=== PATIENT | female | born 1950 | race Caucasian/White ===

== ENCOUNTER 2019-12-07 08:00 | Inpatient (IN) | payer OTHER ==
[2019-12-07 15:18] VITALS: BMI 26.9
--- OUTSIDE RECORDS SUMMARY | 2019-12-11 06:07 | XMS ---
:1950 Author Organization [facility] Care Team Providers Name Role Phone CARMEL GATICA Unavailable Unavailable SANDIE RODRIGUEZ MD Unavailable Unavailable SANDIE RODRIGUEZ MD Unavailable Unavailable JENNIFERSANDIE PANCHAL MD Unavailable Unavailable JENNIFERSANDIE PANCHAL MD Unavailable Unavailable JENNIFERSANDIE PANCHAL MD Unavailable Unavailable JENNIFERSANDIE PANCHAL MD Unavailable Unavailable JENNIFERSANDIE PANCHAL MD Unavailable Unavailable SANDIE RODRIGUEZ MD Unavailable Unavailable SANDIE RODRIGUEZ MD Unavailable Unavailable JENNIFERSANDIE MD Unavailable Unavailable JENNIFERSANDIE MD Unavailable Unavailable JENNIFERSANDIE MD Unavailable Unavailable JENNIFERSANDIE MD Unavailable Unavailable JENNIFERSANDIE PANCHAL MD Unavailable Unavailable Carmel Valles Unavailable Unavailable Jayson Valles Unavailable Unavailable Re-disclosure Warning The records that you are about to access may contain information from federally- assisted alcohol or drug abuse programs. If such information is present, then the following federally mandated warning applies: This information has been disclosed to you from records protected by federal confidentiality rules (42 CFR part 2). The federal rules prohibit you from making any further disclosure of this information unless further disclosure is expressly permitted by the written consent of the person to whom it pertains or as otherwise permitted by 42 CFR part 2. A general authorization for the release of medical or other information is NOT sufficient for this purpose. The Federal rules restrict any use of the information to criminally investigate or prosecute any alcohol or drug abuse patient.The records that you are about to access may contain highly sensitive health information, the redisclosure of which is protected by Article 27-F of the [place] State Public Health law. If you continue you may haveaccess to information: Regarding HIV / AIDS; Provided by facilities licensed or operated by the [facility] Office of Mental Health; or Provided by the [facility] Office for People With Developmental Disabilities. If such information is present, then the following [facility] mandated warning applies: This information has been disclosed to you from confidential records which are protected by state law. State law prohibits you from making any further disclosure of this information without the specific written consent of the person to whom it pertains, or as otherwise permitted by law. Any unauthorized further disclosure in violation of state law may result in a fine or longterm sentence or both. A general authorization for the release of medical or other information is NOT sufficient authorization for further disclosure. Allergies and Adverse Reactions Type Description Substance Reaction Status Data Source(s ) D No Known Medication No Known Medication MANUEL Presterian - Allergies Allergies [facility] Encounters Encounter Providers Location Date Indications Data Source(s ) Outpatient Attender: CARMEL COHEN XR-LAB 07/25/2018 LABS MANUEL GATICAAttender: 10:39:09 AM [facility] Ellie Beaulieurer: CARMEL ALLISON Outpatient Attender: SANDIE COHEN XR-LAB 07/14/2018 08:59:46 LAB MANUEL RODRIGUEZ MDReferrer: AM T [facility] SANDIE RODRIGUEZ [facility] LAB Medications Medication Brand Start Product Dose Route Administrative Pharmacy at Indications Reaction Description Data Name Date Form Instructions Instructions Source(s) Ondansetron Zofran 08/27/ Oral [place] 4 MG ODT 4 2017 [facility] Disintegrat mg 08:34: an - ing Oral oral 42 AM [place] Tablet tablet [facility] ODT , Hospital 4 mg oral disint Center tablet, egrati disintegrat ng ing metaxalone [place] 08/27/ Oral [place] 800 MG Oral in 800 2017 [facility] gayla Tablet mg 07:05: an - Skelaxin oral 33 AM [facility] 800 mg oral tablet [facility] Voltaren [id number] 08/27/ [place] Topical 2018 [facility] 07:05: an - 09 AM [facility] Insurance Providers Payer name Policy type Policy ID Covered Covered constitution party's Policy P robert / Coverage constitution party ID relationship to [facility] [employer] ormation type carrillo WARREN [id number] HEALTHCARE (MEDICARE) [facility] [id number] 117 CARE [facility] [id number] 117 CARE MEDICARE MCR [id number] [facility] [id number] CARE Surgeries/Procedures Procedure Description Date Indications Data Source(s) COLLECTION VENOUS BLOOD 07/25/2018 [facility] - VENIPUNCTURE 10:55:00 AM EDT [facility] COLLECTION VENOUS BLOOD 07/14/2018 [facility] - VENIPUNCTURE 09:10:00 AM EDT [facility] Results ID Date Data Source [id number] 12/07/2019 12:40:00 PM EDT [facility] Name Value Range Interpretation Description Data Sup porting Code Source(s) Document(s ) SARS [facility] coronavirus 2 RNA This lab was ordered by AGUSTÍN ramos [facility] and reported by [facility]. ID Date Data Source [id number] 07/25/2018 10:55:00 AM EDT [facility] [id number] Hospital Center Name Value Range Interpretation Description Data Source(s ) Supporting Code Document(s ) Glucose Lvl 96 mg/dL Normal (applies [place] [facility] to non-[facility] results) Hospital Center AGPK 10.5 Normal (applies [place] [facility] n to non-[facility] results) Hospital Center CO2 26 Normal (applies [place] [facility] n mmol/L to non-[facility] results) Hospital Center Calcium Lvl 9.6 Normal (applies [place] [facility] [place] mg/dL to non-[facility] results) Hospital Center Sodium Lvl 137 Normal (applies [place] [facility] an mmol/L to non-[facility] results) Hospital Center Potassium Lvl 4.5 Normal (applies [place] [facility] erian mmol/L to non-[facility] results) Hospital Center BUN 14 mg/dL Normal (applies [place] [facility] n to non-[facility] results) Hospital Center Creatinine 0.72 Normal (applies [place] [facility] an mg/dL to non-numeric - [facility] results) Hospital Center Chloride 105 Normal (applies RUST n mmol/L to [facility] results) Hospital Center ID Date Data Source [id number] 07/25/2018 10:55:00 AM EDT [facility] [id number] [facility] Name Value Range Interpretation Description Data Source(s ) Supporting Code Document(s ) Phosphorus 3.8 mg/dL Normal (applies to [facility] results) Hospital Center ID Date Data Source [id number] 07/25/2018 10:55:00 AM EDT [facility] [id number] [facility] Name Value Range Interpretation Description Data Source(s ) Supporting Code Document(s ) Alk Phos 55 unit/L Normal (applies to [facility] results) Hospital Center ID Date Data Source [id number] 07/25/2018 10:55:00 AM EDT [facility] [id number] [facility] Name Value Range Interpretation Description Data Source(s ) Supporting Code Document(s ) Albumin Lvl 4.4 g/dL Normal (applies to [facility] results) Hospital Center ID Date Data Source [id number] 07/25/2018 10:55:00 AM EDT [facility] [id number] [facility] Name Value Range Interpretation Code Description Data Anna rce(s) Supporting Document(s ) EGFR Non [facility] - AA [facility] EGFR AA [facility] ID Date Data Source [id number] 07/14/2018 09:10:00 AM EDT [facility] [id number] [facility] Name Value Range Interpretation Description Data Source(s ) Supporting Code Document(s ) ALT 23 unit/L Normal (applies to [facility] results) Hospital Center Albumin Lvl 4.3 g/dL Normal (applies [facility] Bili Direct Normal (applies to [facility] terian [facility] results) Hospital Center Total 6.9 g/dL Normal (applies to [facility] Protein non-[facility] results) Hospital Center Alk Phos 63 unit/L Normal ([facility] results) Hospital Center Bili Total 0.40 Normal (applies to [facility] erian mg/dL non-[facility] results) Hospital Center AST 21 unit/L Normal (applies to [facility] results) Hospital Center ID Date Data Source [id number] 07/14/2018 09:10:00 AM EDT [facility] [id number] Hospital Center Name Value Range Interpretation Description Data Source(s ) Supporting Code Document(s ) Trig 106 mg/dL Normal (applies to [facility] results) [facility] Chol 231 mg/dL Above high normal [facility] Risk 2.82 Normal (applies to [facility] Factor [facility] results) [facility] LDL Calc 127.80 [facility] Direct HDL 82.0 Above high normal [facility] mg/dL - [facility] Lipo Elana Clear Normal ([facility] (07/14/18 [facility] 9:10 AM) results) Hospital Center Procedure Patient Treatment Plan of Care Planned Activity Planned Date Details Description Data Source (s) Ondansetron 4 MG 08/27/2017 DC [facility] - Disintegrating Oral 08:34:42 AM EDT [facility] Center metaxalone 800 MG Oral 08/27/2017 DC [facility] - Tablet 07:05:33 AM EDT [facility] Voltaren Topical 08/27/2017 DC [facility] vicky - 07:05:09 AM EDT [facility]
[2019-12-11] MEDS ORDERED: BUPIVACAINE HCL/PF 0.5% (5 MG/ML) 30 ML VIAL IJ ONE (06:28)
[2019-12-11] MEDS ORDERED: MIDAZOLAM HCL 2 MG/2 ML SINGLE DOSE VIAL ONE ×4 (06:28→11:21)
--- NOTE | 2019-12-11 07:16 | HP ---
History & Physical Update - Physical Physical: No Change - Assessment Assessment: No Change - Plan Plan: No Change
[2019-12-11] MEDS ORDERED: BUPIVACAINE HCL/PF 0.5% (5MG/ML) 10 ML VIAL ONE (07:20)
[2019-12-11] MEDS ORDERED: ceFAZolin SODIUM 1 GM VIAL ONE ×2 (07:23→08:23)
[2019-12-11] MEDS ORDERED: VANCOMYCIN 1,000 MG VIAL (RESTRICTED TO ID ONLY) ONE (07:23)
[2019-12-11] MEDS ORDERED: EPHEDRINE SULFATE/0.9% NACL/PF 50 MG/10 ML SYRINGE NR ONE (07:53)
[2019-12-11] MEDS ORDERED: PROPOFOL 20 ML ONE ×4 (07:53→09:50)
[2019-12-11] MEDS ORDERED: SUCCINYLCHOLINE CHLORIDE 200 MG/10 ML SYRINGE ONE (07:53)
[2019-12-11] MEDS ORDERED: TRANEXAMIC ACID 1000 MG/10 ML VIAL ONE ×2 (08:23→11:18)
[2019-12-11] MEDS ORDERED: DEXAMETHASONE SOD PHOSPHATE 4 MG/1 ML VIAL ONE (08:23)
[2019-12-11] MEDS ORDERED: ONDANSETRON 4 MG/2 ML VIAL ONE (08:23)
[2019-12-11] MEDS ORDERED: BUPIVICAINE 0.25%/MORPH PF/KETOROLAC - 51ML DISP.SYRINGE IA ONE ×2 (10:57→11:16)
[2019-12-11] MEDS ORDERED: VANCOMYCIN 1,000 MG VIAL (RESTRICTED TO ID ONLY) IVPB ONE (11:09)
[2019-12-11] MEDS ORDERED: ONDANSETRON 4 MG/2 ML VIAL IVPUSH PRN (11:55)
[2019-12-11] MEDS ORDERED: MAGNESIUM HYDROX 2400MG/30ML ORAL SUSPENSION 30 ML CUP PO PRN (11:55)
[2019-12-11] MEDS ORDERED: MAG HYDROX/AL HYDROX/SIMETH 30 ML UNIT-DOSE CUP PO PRN (11:55)
--- NOTE | 2019-12-11 11:55 | OPR ---
DATE OF OPERATION: 12/11/2019 TITLE OF OPERATION: Left Total Hip Replacement PREOPERATIVE DIAGNOSIS: Left Hip osteoarthritis POSTOPERATIVE DIAGNOSIS: Left Hip osteoarthritis SURGEON: Jose Antonio Geronimo MD WIRELESS CELLULAR TECHNICIAN: Oleg Oro DO ANESTHESIA: Spinal anesthesia with sedation SPECIMEN: Femoral head PROSTHETIC DEVICE/IMPLANT: Trident II Acetabular Shell size 50 (D); Trident X3 Polyethylene insert Size 36 (D); Accolade II 127 degree neck angle stem, size 4; Biolox Delta Ceramic Femoral Head (Size 36, -2.5 neck length); COMPLICATIONS: none EBL: 100 mL INDICATIONS FOR SURGERY: Ms. Hazel is a 69 year old female who presented in the preoperative setting with a chief complaint of severe left hip osteoarthritis with severe hip pain, an antalgic gate and leg length discrepancy; The patient was initially treated non-operatively with medications, home exercises and physical therapy, but continued to have severe pain and ambulatory dysfunction. She was therefore indicated for a left total hip replacement with MAKOplasty robotic navigation. The risks and benefits of surgery and anesthesia were discussed in detail including but not limited to NC, , stroke, dislocation, leg length discrepancy, sqeaking of implant, infection, continued pain, bleeding, blood clot, scarring/arthrofibrosis, development of heterotopic ossification, damage to vessels and nerves, instability or loosening of implant, difficulty ambulating, alexis-prosthetic fracture, failure to obtain the desired result, failure to heal, failure to return to significant activity. Understanding the risks and benefits, Ms. Hazel opted to proceed with surgical management. SURGEON'S NARRATIVE: On the day of surgery the patient was taken to the operating room and placed on the OR table. Spinal anesthesia was administered by the anesthesiologist. The patient was then positioned in the lateral decubitus position on the table and all bony prominences were padded. An EKG lead was placed with a tegaderm on the lateral femoral condyle as a limb checkpoint. An axillary roll was placed. The operative hip was then prepped and draped in the usual sterile fashion, and intravenous antibiotics were given for infection prophylaxis. A surgical time- out was then performed with the team, and the patients identity, procedure, operative side, availability of implants, and the administration of antibiotics and tranexamic acid were confirmed. Three small stab incisions were made superior to the planned main incision along the iliac crest. Three self-drilling Steinmann pins were then placed and the Vivek pelvic array was attached. An approximately 10cm incision was made through the skin centered on the posterior aspect of the greater trochanter of the hip, with a slight downturn postero-superiorly. This dissection was carried down through the subcutaneous tissues to the deep fascia. This fascia was then sharply incised and curved duncan was used to elongate this incision. The charnley retractor was then placed, making sure it did not capture the sciatic nerve posteriorly. Electrocautery was then used to reflect the bursa from anterior to posterior. Bleeders were identified and cauterized. The hip was internally rotated, the external rotators of the hip were identified, and the piriformis tendon and adjacent external rotators were tagged using a number 1 vicryl suture. The piriformis tendon was then released, the external rotators reflected, and the posterior capsule was then identified. A posterior capsulotomy was performed in a T-shaped fashion, and a #2 Fiberwire was placed into each limb of the capsule for later repair. Acetabulum and greater trochanter checkpoints were appropriately placed prior to dislocation of the hip. Reference points on the limb were then entered into the robotic device, and the limb length deficiency, offset, and femoral neck resection levels were then calculated by the software. The hip was dislocated, and the acetabulum, femoral head and neck were visualized. Grade IV changes were noted diffusely throughout the joint. An oscillating saw was used to make the femoral neck cut at the level previously templated, and the femoral head was removed. Attention was then turned to the acetabulum. Retractors were placed around the acetabulum and the labrum was removed. The acetabulum checkpoint pin and emoquo software were used to register the contours of the acetabulum. The acetabulum was then reamed in a single stage to the preoperatively templated size using the emoquo robotic arm. The appropriately sized cup was then impacted and had solid fixation as well as the preset inclination and version. A polyethylene liner was then placed in the cup. Attention was then turned back to the femur, which was internally rotated for improved visualization. A femoral neck elevator was used to present the femoral neck cut. A box osteotome was used to enter the femoral canal, and a canal finder was used to go down the femoral shaft. The Vivek broaches were used sequentially until the optimal scratch fit was achieved. This correlated with the preoperatively templated size. From here, several different offset head and neck configurations were tested with trial components until excellent stability and length were obtained. These measurements were quantified using the Vivek software. All trial components were then removed, the femur was copiously irrigated, and the final components were placed. Leg length and stability were checked again and found to be excellent. An approximately three-minute diluted betadine soak was performed, followed by thorough pulsatile irrigation with normal saline. One gram of vancomycin powder was then spread around the joint tissues. Wound closure was started by repair of the piriformis and external rotators along with the capsule limbs using bone tunnels through the greater trochanter and tied over a bony bridge. Next, a number 1 vicryl suture was used to repair and close the fascia. The deep subcutaneous tissue was closed with 0 vicryl sutures in layers, the superficial subcutaneous tissue was closed with 2-0 vicryl sutures, and the skin was closed using rigoberto. The Vivek array and pins were removed from the iliac crest and the stab incision sites were irrigated and closed with a 3-0 biosyn suture in simple interrupted form. Once this was completed, sterile dressings were applied including steri-strips and aquacell dressings. The patient was then awakened and turned to supine position. Post-operative X-rays were taken to confirm adequate placement of implants. No alexis-prosthetic fractures were present. The patient was then taken to the PACU in stable condition. Post-Op Plan: WBAT / Physical Therapy BID Posterior Hip Precautions Abduction Pillow between legs DVT prophylaxis: ASA 325mg BID x 6 weeks, SCDs b/l LE D/C [place] on POD 14 Medical Management Dispo Planning
[2019-12-11] MEDS ORDERED: LACTATED RINGERS SOLUTION 1,000 ML IV SCH (12:00)
[2019-12-11] MEDS ORDERED: morphine SULFATE 4 MG/ML VIAL IVPUSH PRN (12:01)
[2019-12-11] MEDS ORDERED: oxyCODONE HCL 5 MG TABLET PO PRN ×3 (12:01→12:02)
[2019-12-11] MEDS ORDERED: ACETAMINOPHEN 325 MG TABLET (FP) PO SCH (12:15)
--- NOTE | 2019-12-11 13:19 | HP ---
Admitting History and Physical - Primary Care Physician PCP: Ines Reyes - Admission Chief Complaint: DJD left hip - s/p left hip replacement History of Present Illness: 69 year old F with h/o breast cancer, endometrial cancer, DJD hips and knees, hypothyroidism and gastritis who reports chronic left hip pain and left leg " giving out" presents to [facility] for elective Left hip replacement in order to improve functioning and decrease pain levels. Intra-op course was uncomplicated, however, pt was notably hypotensive (SBP 80s) while in recovery requiring fluid bolus + maintenance IVF. She was transferred to Med-surg unit after SBP > 100mHg. 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 Left breast cancer 1996, 2003 Breast ca s/p radiation 2004 Osteopenia gastritis GERD 2cm hiatal hernia hemorrhoids, DJD (hips) - Past Surgical History Additional Past Surgical History: ANITA BSO - endometrial cancer 2006 left breast cyst excision - LCIS 1987 1996 lumpectomy 2004 lumpectomy with RT invasive lobar breast cancer 1996 resection of aortic valve tumor right knee meniscal tear repair gastroscopy 2016 breast reduction 2013 - Advance Directives Advance Directives: Yes: Health Care Proxy (Brother -Arpan Arias) - Smoking History Smoking history: Never smoked Have you smoked in the past 12 months: No - Alcohol/Substance Use Hx Alcohol Use: No History of Substance Use: reports: None - Social History Usual Living Arrangement: Yes: Alone ADL: Independent History of Recent Travel: No Home Medications - Allergies Allergies/Adverse Reactions: Allergies Allergy/AdvReac Type Severity Reaction Status Date / Time metaxalone Allergy Severe PALPITATION Verified 12/07/19 14:55 S - Home Medications Home Medications: Ambulatory Orders Levothyroxine [Synthroid -] 50 mcg PO DAILY 12/07/19 Red Yeast Rice 600 mg PO HS 12/07/19 Family Medical History Family History: As Documented Other Family History: Mother alive (81) CHF. Father (78) NHL. MGM (60) breast cancer Review of Systems - Review of Systems Constitutional: reports: No Symptoms Eyes: reports: No Symptoms HENT: reports: No Symptoms Neck: reports: No Symptoms Cardiovascular: reports: No Symptoms Respiratory: reports: No Symptoms Gastrointestinal: reports: No Symptoms Genitourinary: reports: No Symptoms Breasts: reports: No Symptoms Reported Musculoskeletal: reports: No Symptoms Integumentary: reports: No Symptoms Neurological: reports: No Symptoms Endocrine: reports: No Symptoms Hematology/Lymphatic: reports: No Symptoms Psychiatric: reports: No Symptoms Physical Examination Vital Signs: Vital Signs Temperature 97.8 F 12/11/19 11:58 Pulse Rate 73 12/11/19 12:48 Respiratory Rate 18 12/11/19 12:48 Blood Pressure 85/40 L 12/11/19 12:48 O2 Sat by Pulse Oximetry (%) 97 12/11/19 12:48 Constitutional: Yes: Well Nourished, No Distress, Calm Eyes: Yes: Conjunctiva Clear HENT: Yes: Atraumatic, Normocephalic Neck: Yes: Supple, Trachea Midline Cardiovascular: Yes: Regular Rate and Rhythm Respiratory: Yes: Regular, CTA Bilaterally Gastrointestinal: Yes: Soft, Abdomen, Obese ...Rectal Exam: Yes: Deferred Renal/: Yes: Erwin Present Musculoskeletal: Yes: Joint Stiffness Extremities: Yes: WNL Edema: No Peripheral Pulses WNL: Yes Peripheral Pulses: Left Radial: 2+, Right Radial: 2+, Left Doralis Pedis: 2+, Right Dorsalis Pedis: 2+ Integumentary: Yes: WNL Wound/Incision: Yes: Clean/Dry, Dressing Dry and Intact Neurological: Yes: Alert, Oriented ...Motor Strength: WNL Psychiatric: Yes: Alert, Oriented Imaging - Results X-ray: Report Reviewed (Left hip X-ray 12/11/2019 Left hip: Replacement. Pain. A single view of the left hip includes the right hip and most of the pelvis. There is a new left hip replacement with soft tissue air, soft tissue rigoberto and pelvic clips. There are arthritic right hip changes. The pelvic bones are intact. The SI joints are patent. There is urine filled bladder. Impression: Status post left hip replacement. Reported By: Jose Antonio Sher MD 12/11/19 1156) Cat Scan: Report Reviewed (CT SCan left hip 11/27/2019 Sequential axial images were obtained through the hip and knee joints utilizing Vivek protocol was preoperative assessment for left hip replacement surgery. Moderately severe degenerative arthritic changes are noted about the hip joint with narrowing of the joint space and subchondral cysts involving the acetabulum and femoral head. Less extensive degenerative changes are seen about the right hip and knee joints. IMPRESSION: Vivek protocol as preoperative assessment for left hip replacement surgery. Reported By: Aquilino Rojo MD 11/27/19 1122) Problem List - Problems (1) Status post left hip replacement Assessment/Plan: Left hip precautions Ancef x 3 doses DVT PPX - Aspirin 325mg BID to start on 12/11 for six weeks neurontin/APAP/oxycodone PRN pain PT evaluation baseline H/H 14.4/42.6, post op H/H 8.4/24.6 (? dilutional) --> will trend H/H and transfuse if hgb < 8.0 with signs of hemodynamic instability. IVF Code(s): Z96.642 - PRESENCE OF LEFT ARTIFICIAL HIP JOINT (2) Hypothyroidism Assessment/Plan: continue synthroid 50mcg Code(s): E03.9 - HYPOTHYROIDISM, UNSPECIFIED (3) Prophylactic measure Assessment/Plan: PPI daily vitamin C daily ASA BID Code(s): Z29.9 - ENCOUNTER FOR PROPHYLACTIC MEASURES, UNSPECIFIED Assessment/Plan Code status: Full code Dispo: home on Saturday, if stable. Plan of care reviewed with surgical team. Visit type - Medication Review Med list reviewed for High Risk Meds patients 65 and older: Yes - Emergency Visit Emergency Visit: No - New Patient This patient is new to me today: Yes Date on this admission: 12/11/19 - Critical Care Critical Care patient: No
[2019-12-11 14:41] LABS: CALCIUM 7.4 mg/dl (8.5-10); CREATININE 0.4 mg/dl (0.55-1.3)
[2019-12-11 15:02] LABS: HEMATOCRIT 24.6 % (32.4-45.2); HEMOGLOBIN 8.4 GM/dl (10.7-15.3); MCHC 34.1 g/dl (32.0-36.0); MEAN CELL VOLUME 96.8 fl (80-96); MEAN PLT VOLUME 8.5 fl (7.5-11.1); PLATELET COUNT 159 K/MM3 (134-434); RBC 2.54 M/mm3 (3.60-5.2); RDW 12.5 % (11.6-15.6); WHITE BLOOD COUNT 5.8 K/mm3 (4.0-10.8)
[2019-12-11] MEDS ORDERED: ACETAMINOPHEN 1000 MG/100 ML VIAL (NON FORMULARY) IVPB ONE (16:13)
[2019-12-11 16:46] LABS: PLATELET ESTIMATE ADEQUATE
[2019-12-11] MEDS: CEFAZOLIN 2 GM/D5W 2 GM/50 ML ML IVPB SCH ×2 (16:58→23:41)
[2019-12-11] MEDS: ACETAMINOPHEN 325 MG TABLET (FP) PO SCH ×2 (17:28→20:04)
[2019-12-11 18:15] LABS: HEMOGLOBIN 11.9 GM/dl (10.7-15.3); MCH 32.6 pg (25.7-33.7); MCHC 33.9 g/dl (32.0-36.0); MEAN CELL VOLUME 96.2 fl (80-96); MEAN PLT VOLUME 8.3 fl (7.5-11.1); PLATELET COUNT 238 K/MM3 (134-434); RBC 3.63 M/mm3 (3.60-5.2); RDW 12.3 % (11.6-15.6); WHITE BLOOD COUNT 9.4 K/mm3 (4.0-10.8)
[2019-12-11] MEDS: oxyCODONE HCL 5 MG TABLET PO PRN (20:04)
[2019-12-11] MEDS: SENNOSIDES/DOCUSATE COMBO (SENNA PLUS) TABLET (UD) PO SCH (21:49)
[2019-12-11] MEDS: GABAPENTIN 300 MG CAPSULE PO SCH (21:49)
[2019-12-11] MEDS: ASCORBIC ACID 500 MG TABLET (FP) PO SCH (21:50)
[2019-12-11] MEDS: oxyCODONE HCL 10 MG SUSTAINED ACTING TABLET PO SCH (21:50)
[2019-12-12] MEDS: ACETAMINOPHEN 325 MG TABLET (FP) PO SCH ×2 (06:44→09:31)
[2019-12-12] MEDS: LEVOTHYROXINE NA 50 MCG TABLET (FP) PO SCH (06:45)
[2019-12-12 08:14] LABS: HEMATOCRIT 32.1 % (32.4-45.2); HEMOGLOBIN 10.8 GM/dl (10.7-15.3); MCH 32.1 pg (25.7-33.7); MCHC 33.5 g/dl (32.0-36.0); MEAN CELL VOLUME 95.8 fl (80-96); MEAN PLT VOLUME 8.5 fl (7.5-11.1); PLATELET COUNT 193 K/MM3 (134-434); RBC 3.35 M/mm3 (3.60-5.2); RDW 12.7 % (11.6-15.6); WHITE BLOOD COUNT 6.7 K/mm3 (4.0-10.8)
[2019-12-12 08:17] LABS: CALCIUM 8.3 mg/dl (8.5-10); CREATININE 0.7 mg/dl (0.55-1.3)
--- NOTE | 2019-12-12 08:39 | PN ---
Physical Exam: SUBJECTIVE: Patient seen and examined at bedside, still c/o left hip pain, and mild lightheadedness, no other complains. OBJECTIVE: Vital Signs Period Temp Pulse Resp BP Sys/Thomas Pulse Ox Last 24 Hr 97.8 F-98.6 F 70-91 15-19 79-125/34-56 95-100 GENERAL: The patient is awake, alert, and fully oriented, in no acute distress. HEAD: Normal with no signs of trauma. EYES: PERRL, extraocular movements intact, sclera anicteric, conjunctiva clear. No ptosis. ENT: Ears normal, nares patent, oropharynx clear without exudates, moist mucous membranes. NECK: Trachea midline, full range of motion, supple. LUNGS: Breath sounds equal, clear to auscultation bilaterally, no wheezes, no crackles, no accessory muscle use. HEART: Regular rate and rhythm, S1, S2 without murmur, rub or gallop. ABDOMEN: Soft, nontender, nondistended, normoactive bowel sounds, no guarding, no rebound, no hepatosplenomegaly, no masses. EXTREMITIES: 2+ pulses, warm, well-perfused, no edema.- left hip dsg dry and intact NEUROLOGICAL: Cranial nerves II through XII grossly intact. Normal speech, gait not observed. PSYCH: Normal mood, normal affect. SKIN: Warm, dry, normal turgor, no rashes or lesions noted Laboratory Results - last 24 hr 12/11/19 12/11/19 12/11/19 12:00 14:25 18:01 WBC 5.8 9.4 RBC 2.54 L 3.63 Hgb 8.4 L 11.9 Hct 24.6 L 35.0 D MCV 96.8 H 96.2 H MCH 33.0 32.6 MCHC 34.1 33.9 RDW 12.5 12.3 Plt Count 159 238 MPV 8.5 8.3 Absolute Neuts (auto) 5.3 Neutrophils % Podiatric Medicine Professor Neutrophils % (Manual) 95.0 H* Band Neutrophils % 2.0 Lymphocytes % Podiatric Medicine Professor Lymphocytes % (Manual) 2.0 L Monocytes % Podiatric Medicine Professor Monocytes % (Manual) 1 L Eosinophils % Podiatric Medicine Professor Basophils % Podiatric Medicine Professor Platelet Estimate Adequate Sodium 133 L Potassium 4.0 Chloride 106 Carbon Dioxide 17 L Anion Gap 10 BUN 8.0 Creatinine 0.4 L Est GFR (CKD-EPI)AfAm 124.91 Est GFR (CKD-EPI)NonAf 107.78 Random Glucose 94 Calcium 7.4 L 12/12/19 12/12/19 07:30 07:30 WBC 6.7 RBC 3.35 L Hgb 10.8 Hct 32.1 L MCV 95.8 MCH 32.1 MCHC 33.5 RDW 12.7 Plt Count 193 MPV 8.5 Absolute Neuts (auto) Neutrophils % Neutrophils % (Manual) Band Neutrophils % Lymphocytes % Lymphocytes % (Manual) Monocytes % Monocytes % (Manual) Eosinophils % Basophils % Platelet Estimate Sodium 137 Potassium 4.0 Chloride 105 Carbon Dioxide 26 Anion Gap 6 L BUN 11.0 Creatinine 0.7 Est GFR (CKD-EPI)AfAm 103.91 Est GFR (CKD-EPI)NonAf 89.65 Random Glucose 117 H Calcium 8.3 L Active Medications Generic Name Dose Route Start Last Admin Trade Name Freq PRN Reason Stop Dose Admin Acetaminophen 650 mg 12/11/19 15:00 12/12/19 06:44 Tylenol - PO 12/14/19 14:59 Not Given Q6H [facility] Acetaminophen 650 mg 12/14/19 21:00 Tylenol - PO Q6H [facility] Al Hydroxide/Mg Hydroxide 30 ml 12/11/19 11:55 Mylanta Oral Suspension - PO Q4H PRN DYSPEPSIA Ascorbic Acid 500 mg 12/11/19 22:00 12/11/19 21:50 Vitamin C - PO 500 mg BID [facility] Administration Aspirin 325 mg 12/12/19 10:00 Asa - PO BID [facility] Fentanyl 50 mcg 12/11/19 12:02 Sublimaze Injection - IVPUSH [id number] PRN PAIN-PACU ORDER X 4 DOSES ONLY Gabapentin 300 mg 12/11/19 22:00 12/11/19 21:49 Neurontin - PO 12/14/19 21:59 300 mg BID [facility] Administration Levothyroxine Sodium 50 mcg 12/12/19 07:00 12/12/19 06:45 Synthroid - PO 50 mcg DAILY@0700 [facility] Administration Magnesium Hydroxide 30 ml 12/11/19 11:55 Milk Of Magnesia - PO PRN PRN CONSTIPATION Morphine Sulfate 4 mg 12/11/19 12:01 12/11/19 23:51 Morphine Sulfate IVPUSH 4 mg Q4H PRN Administration PAIN LEVEL 7 - 10 Multivitamins/Minerals/Vitamin C 1 tab 09/26/20 10:00 Tab-A-Vit - PO DAILY [facility]ENN[facility] Ondansetron HCl 4 mg 12/11/19 11:55 Zofran Injection IVPUSH Q6H PRN NAUSEA Oxycodone HCl 5 mg 12/11/19 12:00 12/11/19 20:04 Roxicodone - PO 5 mg Q4H PRN Administration PAIN LEVEL 1 - 3 Oxycodone HCl 10 mg 12/11/19 12:01 Roxicodone - PO 12/14/19 12:01 Q4H PRN PAIN LEVEL 4 - 6 Oxycodone HCl 10 mg 12/11/19 22:00 12/11/19 21:50 Oxycontin - PO 12/14/19 12:03 10 mg BID [facility]ENN[facility]ER Administration Pantoprazole Sodium 40 mg 12/12/19 10:00 Protonix - PO DAILY JENN[facility]ER Senna/Docusate Sodium 2 tablet 12/11/19 22:00 12/11/19 21:49 Pericolace - PO 2 tablet BID JENNIFER Administration * Imaging Left hip X-ray : A single view of the left hip includes the right hip and most of the pelvis. There is a new left hip replacement with soft tissue air, soft tissue rigoberto and pelvic clips. There are arthritic right hip changes. The pelvic bones are intact. The SI joints are patent. There is urine filled bladder. ASSESSMENT/PLAN: 69 year old F with h/o breast cancer, endometrial cancer, DJD hips and knees, hypothyroidism and gastritis who reports chronic left hip pain, s/p elective Left hip replacement. Hypotensive post sx, medicine consulted for medical management. *Status post left hip replacement 12/11/19 - management per sx - s/p Ancef x 3 doses - pain control - PT eval - encourage to use IS - Bowel regimen - afebrile with no leukocytosis - will DC Erwin and monitor voiding * Abnormal Neutrophils - absolute Neuts - wnl - will Rpt the test and monitor * Hypotension , poss due to anesthesia / pain meds - known hox of hypotension post sx - BP improving slowly - will cont on IVF and monitor *Hypothyroidism - will cont Synthroid 50mcg * GERD on PPI * VTE: Prophylaxis : ASA 325mg BID * F/E/N: Regular diet, replace electrolyte as needed Code status: Full code Dispo: Poss DC home on Saturday, if stable. Visit type - Emergency Visit Emergency Visit: Yes ED Registration Date: 12/11/19 Care time: The patient presented to the Emergency Department on the above date and was hospitalized for further evaluation of their emergent condition. - New Patient This patient is new to me today: Yes Date on this admission: 12/13/19 - Critical Care Critical Care patient: No - Discharge Referral Referred to [facility] Med [facility].C[facility] No - Medication Review Med list reviewed for High Risk Meds patients 65 and older: Yes
[2019-12-12] MEDS: MULTIVITAMINS (DAILY MVI) TABLET (FP) PO SCH (09:27)
[2019-12-12] MEDS: ASPIRIN 325 MG TABLET PO SCH ×2 (09:27→21:13)
[2019-12-12] MEDS: DOCUSATE SODIUM 100 MG CAPSULE (FP) PO SCH ×2 (09:27→21:14)
[2019-12-12] MEDS: GABAPENTIN 300 MG CAPSULE PO SCH ×2 (09:28→21:14)
[2019-12-12] MEDS: PANTOPRAZOLE 40 MG TABLET PO SCH (09:28)
[2019-12-12] MEDS: SENNOSIDES/DOCUSATE COMBO (SENNA PLUS) TABLET (UD) PO SCH ×2 (09:28→21:15)
[2019-12-12] MEDS: SODIUM CHLORIDE 1,000 ML IV SCH (09:29)
[2019-12-12] MEDS: oxyCODONE HCL 10 MG SUSTAINED ACTING TABLET PO SCH ×2 (09:29→21:14)
[2019-12-12] MEDS: ASCORBIC ACID 500 MG TABLET (FP) PO SCH ×2 (09:32→21:15)
--- NOTE | 2019-12-12 10:23 | PN ---
Progress Note (short form) - Note Progress Note: ORTHOPEDIC SURGERY PROGRESS NOTE Department of Orthopedic Surgery SUBJECTIVE No acute events overnight. No complaints currently. Denies chest pain, shortness of breath, or calf pain. No nausea or vomiting. Tolerating oral intake. Pain control difficult overnight, but improving. PHYSICAL EXAMINATION General: Alert, oriented, cooperative and no distress. Left Lower Extremity: Dressing c/d/intact; Skin intact, no lesions, rashes or ulcers noted. Muscle mass equal and symmetric to contralateral side. No atrophy noted. No masses or effusions noted. No tenderness to palpation. LROM of the hip secondary to post surgical pain. Full passive and active ROM of the knee and ankle, free from pain. EHL/TA/GS motor intact; SILT distally; 2+ DP pulses; Cap refill brisk. DVT Exam: No evidence of DVT seen on physical exam; No cords or calf tenderness; No significant calf/ankle edema. Intake & Output 12/10/19 12/11/19 12/12/19 23:59 23:59 23:59 Intake Total 2240 Output Total 2105 200 Balance 135 -200 Intake: IV 2000 Oral Supplement 240 Output: Urine 2105 200 Erwin 2105 200 Other: Voiding Method Bedpan Indwelling Catheter Weight 157 lb Height 5 ft 4 in Body Mass Index (BMI) 26.9 Weight Measurement Method Standing Scale Active Medications Generic Name Dose Route Start Last Admin Trade Name Freq PRN Reason Stop Dose Admin Acetaminophen 975 mg 12/14/19 21:00 Tylenol - PO Q6H [facility]ENN[facility]ER Al Hydroxide/Mg Hydroxide 30 ml 12/11/19 11:55 Mylanta Oral Suspension - PO Q4H PRN DYSPEPSIA Ascorbic Acid 500 mg 12/11/19 22:00 12/12/19 09:32 Vitamin C - PO 500 mg BID JENNIFER Administration Aspirin 325 mg 12/12/19 10:00 12/12/19 09:27 Asa - PO 325 mg BID JENN[facility]ER Administration Docusate Sodium 100 mg 12/12/19 10:00 12/12/19 09:27 Colace - PO 100 mg BID JENNIFER Administration Fentanyl 50 mcg 12/11/19 12:02 Sublimaze Injection - IVPUSH [id number] PRN PAIN-PACU ORDER X 4 DOSES ONLY Gabapentin 300 mg 12/11/19 22:00 12/12/19 09:28 Neurontin - PO 12/14/19 21:59 300 mg BID JENNIFER Administration Sodium Chloride 1,000 mls @ 100 mls/hr 12/12/19 08:45 12/12/19 09:29 Normal Saline - IV 100 mls/hr ASDIR JENNIFER Administration Levothyroxine Sodium 50 mcg 12/12/19 07:00 12/12/19 06:45 Synthroid - PO 50 mcg DAILY@0700 JENN[facility]ER Administration Lidocaine 1 patch 12/12/19 10:30 Lidoderm Patch - TP DAILY JENNIFER Magnesium Hydroxide 30 ml 12/11/19 11:55 Milk Of Magnesia - PO PRN PRN CONSTIPATION Miscellaneous 1 each 12/12/19 22:00 Lidoderm Patch Removal MC DAILY@2200 [facility] Morphine Sulfate 4 mg 12/11/19 12:01 12/11/19 23:51 Morphine Sulfate IVPUSH 4 mg Q4H PRN Administration PAIN LEVEL 7 - 10 Multivitamins/Minerals/Vitamin C 1 tab 12/12/19 10:00 12/12/19 09:27 Tab-A-Vit - PO 1 tab DAILY JENNIFER Administration Ondansetron HCl 4 mg 12/11/19 11:55 Zofran Injection IVPUSH Q6H PRN NAUSEA Oxycodone HCl 5 mg 12/11/19 12:00 12/11/19 20:04 Roxicodone - PO 5 mg Q4H PRN Administration PAIN LEVEL 1 - 3 Oxycodone HCl 10 mg 12/11/19 12:01 Roxicodone - PO 12/14/19 12:01 Q4H PRN PAIN LEVEL 4 - 6 Oxycodone HCl 10 mg 12/11/19 22:00 12/12/19 09:29 Oxycontin - PO 12/14/19 12:03 Not Given BID JENN[facility]ER Pantoprazole Sodium 40 mg 12/12/19 10:00 12/12/19 09:28 Protonix - PO 40 mg DAILY JENN[facility]ER Administration Senna/Docusate Sodium 2 tablet 12/11/19 22:00 12/12/19 09:28 Pericolace - PO 2 tablet BID JENN[facility]ER Administration Vital Signs (last) Temp Pulse Resp BP Pulse Ox 98.6 F 74 16 94/36 L 97 12/12/19 09:20 12/12/19 09:20 12/12/19 09:20 12/12/19 09:20 12/12/19 09:20 Laboratory 12/12/19 07:30 12/12/19 07:30 ASSESSMENT AND PLAN Ms. Hazel is a 69 year old female s/p Left LAURIE POD 1 - Pain control: Transition to oral pain medications, minimize narcotic use - DVT prophylaxis (ASA 325 BID x 6 weeks) - Ice to left hip - Elevate HOB, encourage oral intake - Appreciate medical management (Nutrition optimization, decubitus precautions heel/sacrum) - Physical therapy BID; WBAT LLE - Dispo planning
[2019-12-12] MEDS: LIDOCAINE 5% TOPICAL PATCH TP SCH (11:27)
[2019-12-12 12:26] LABS: LYMPH % 9.4 % (8-40); NEUT % 81.4 % (42.8-82.8)
[2019-12-12 12:27] LABS: BASO % 0.2 % (0-2.0); EOS % 0.1 % (0-4.5); MONO % 8.9 % (3.8-10.2)
[2019-12-12] MEDS: oxyCODONE HCL 5 MG TABLET PO PRN ×2 (15:46→18:56)
[2019-12-12] MEDS ORDERED: LIDOCAINE PATCH REMOVAL MC SCH (22:00)
[2019-12-13 02:22] VITALS: TEMP 98.4
[2019-12-13] MEDS: oxyCODONE HCL 5 MG TABLET PO PRN ×2 (04:42→10:19)
[2019-12-13] MEDS: LEVOTHYROXINE NA 50 MCG TABLET (FP) PO SCH (06:58)
[2019-12-13] MEDS: SODIUM CHLORIDE 1,000 ML IV SCH (09:00)
[2019-12-13 09:47] LABS: HEMATOCRIT 31.5 % (32.4-45.2); HEMOGLOBIN 10.7 GM/dl (10.7-15.3); MCH 32.7 pg (25.7-33.7); MCHC 34.1 g/dl (32.0-36.0); MEAN CELL VOLUME 95.8 fl (80-96); MEAN PLT VOLUME 8.9 fl (7.5-11.1); PLATELET COUNT 203 K/MM3 (134-434); RBC 3.29 M/mm3 (3.60-5.2); RDW 12.6 % (11.6-15.6); WHITE BLOOD COUNT 7.6 K/mm3 (4.0-10.8)
--- NOTE | 2019-12-13 10:04 | PN ---
Progress Note (short form) - Note Progress Note: ORTHOPEDIC SURGERY PROGRESS NOTE Department of Orthopedic Surgery SUBJECTIVE No acute events overnight. No complaints currently. Denies chest pain, shortness of breath, or calf pain. No nausea or vomiting. Tolerating oral intake. Pain controlled and resting comfortably. Walked 30+ feet with physical therapy. PHYSICAL EXAMINATION General: Alert, oriented, cooperative and no distress. Left Lower Extremity: Dressing c/d/intact; Skin intact, no lesions, rashes or ulcers noted. Muscle mass equal and symmetric to contralateral side. No atrophy noted. No masses or effusions noted. No tenderness to palpation. LROM of the hip secondary to post surgical pain. Full passive and active ROM of the knee and ankle, free from pain. EHL/TA/GS motor intact; SILT distally; 2+ DP pulses; Cap refill brisk. DVT Exam: No evidence of DVT seen on physical exam; No cords or calf tenderness; No significant calf/ankle edema. Intake & Output 12/11/19 12/12/19 12/13/19 23:59 23:59 23:59 Intake Total 2240 1000 Output Total 2105 200 Balance 135 -200 1000 Intake: IV 2000 500 Normal Saline - 1,000 ml 500 @ 100 mls/hr IV ASDIR JENNIFER Rx#:[id number] Oral 500 Oral Supplement 240 Output: Urine 2105 200 Erwin 2105 200 Other: Voiding Method Bedpan Toilet Toilet # Unmeasured Voids Erwin 1 Bowel Movement Yes # Bowel Movements 2 Weight 157 lb Height 5 ft 4 in Body Mass Index (BMI) 26.9 Weight Measurement Method Standing Scale Active Medications Generic Name Dose Route Start Last Admin Trade Name Freq PRN Reason Stop Dose Admin Acetaminophen 975 mg 12/14/19 21:00 Tylenol - PO Q6H [facility] Al Hydroxide/Mg Hydroxide 30 ml 12/11/19 11:55 Mylanta Oral Suspension - PO Q4H PRN DYSPEPSIA Ascorbic Acid 500 mg 12/11/19 22:00 12/12/19 21:15 Vitamin C - PO 500 mg BID [facility] Administration Aspirin 325 mg 12/12/19 10:00 12/12/19 21:13 Asa - PO 325 mg BID [facility] Administration Docusate Sodium 100 mg 12/12/19 10:00 12/12/19 21:14 Colace - PO 100 mg BID [facility] Administration Fentanyl 50 mcg 12/11/19 12:02 Sublimaze Injection - IVPUSH [id number] PRN PAIN-PACU ORDER X 4 DOSES ONLY Gabapentin 300 mg 12/11/19 22:00 12/12/19 21:14 Neurontin - PO 12/14/19 21:59 300 mg BID JENNIFER Administration Sodium Chloride 1,000 mls @ 100 mls/hr 12/12/19 08:45 12/12/19 09:29 Normal Saline - IV 100 mls/hr ASDIR JENNIFER Administration Levothyroxine Sodium 50 mcg 12/12/19 07:00 12/13/19 06:58 Synthroid - PO 50 mcg DAILY@0700 JENNIFER Administration Lidocaine 1 patch 12/12/19 10:30 12/12/19 11:27 Lidoderm Patch - TP 1 patch DAILY JENNIFER Administration Magnesium Hydroxide 30 ml 12/11/19 11:55 Milk Of Magnesia - PO PRN PRN CONSTIPATION Miscellaneous 1 each 12/12/19 22:00 12/12/19 21:14 Lidoderm Patch Removal MC 1 each DAILY@2200 JENNIFER Administration Morphine Sulfate 4 mg 12/11/19 12:01 12/11/19 23:51 Morphine Sulfate IVPUSH 4 mg Q4H PRN Administration PAIN LEVEL 7 - 10 Multivitamins/Minerals/Vitamin C 1 tab 12/12/19 10:00 12/12/19 09:27 Tab-A-Vit - PO 1 tab DAILY JENNIFER Administration Ondansetron HCl 4 mg 12/11/19 11:55 12/12/19 21:54 Zofran Injection IVPUSH 4 mg Q6H PRN Administration NAUSEA Oxycodone HCl 5 mg 12/11/19 12:00 12/13/19 04:42 Roxicodone - PO 5 mg Q4H PRN Administration PAIN LEVEL 1 - 3 Oxycodone HCl 10 mg 12/11/19 12:01 Roxicodone - PO 12/14/19 12:01 Q4H PRN PAIN LEVEL 4 - 6 Oxycodone HCl 10 mg 12/11/19 22:00 12/12/19 21:14 Oxycontin - PO 12/14/19 12:03 Not Given BID JENN[facility]ER Pantoprazole Sodium 40 mg 12/12/19 10:00 12/12/19 09:28 Protonix - PO 40 mg DAILY JENNIFER Administration Senna/Docusate Sodium 2 tablet 12/11/19 22:00 12/12/19 21:15 Pericolace - PO 2 tablet BID JENN[facility]ER Administration Vital Signs (last) Temp Pulse Resp BP Pulse Ox 98.4 F 92 H 18 90/52 L 98 12/13/19 06:00 12/13/19 09:03 12/13/19 09:03 12/13/19 09:03 12/13/19 09:03 Laboratory 12/13/19 07:00 12/12/19 07:30 ASSESSMENT AND PLAN Ms. Hazel is a 69 year old female s/p Left LAURIE POD 2 - Pain control: Transition to oral pain medications, minimize narcotic use - DVT prophylaxis (ASA 325 BID x 6 weeks) - Ice to left hip - Elevate HOB, encourage oral intake - Appreciate medical management (Nutrition optimization, decubitus precautions heel/sacrum) - Physical therapy BID; WBAT LLE - Dispo planning
[2019-12-13] MEDS: DOCUSATE SODIUM 100 MG CAPSULE (FP) PO SCH (10:18)
[2019-12-13] MEDS: MULTIVITAMINS (DAILY MVI) TABLET (FP) PO SCH (10:18)
[2019-12-13] MEDS: GABAPENTIN 300 MG CAPSULE PO SCH (10:18)
[2019-12-13] MEDS: SENNOSIDES/DOCUSATE COMBO (SENNA PLUS) TABLET (UD) PO SCH (10:18)
[2019-12-13] MEDS: ASPIRIN 325 MG TABLET PO SCH (10:18)
[2019-12-13] MEDS: PANTOPRAZOLE 40 MG TABLET PO SCH (10:18)
[2019-12-13] MEDS: ASCORBIC ACID 500 MG TABLET (FP) PO SCH (10:18)
[2019-12-13] MEDS: LIDOCAINE 5% TOPICAL PATCH TP SCH (10:19)
[2019-12-13] MEDS: oxyCODONE HCL 10 MG SUSTAINED ACTING TABLET PO SCH ×2 (10:19→11:30)
[2019-12-13 11:01] VITALS: BP 97/52; PULSE 66
--- NOTE | 2019-12-13 12:52 | DS ---
Physical Exam: SUBJECTIVE: Patient seen and examined. OBJECTIVE: Vital Signs Period Temp Pulse Resp BP Sys/Thomas Pulse Ox Last 24 Hr 98.4 F-99.3 F 66-92 16-18 90-112/39-52 95-98 PHYSICAL EXAM GENERAL: The patient is awake, alert, and fully oriented, in no acute distress. HEAD: Normal with no signs of trauma. EYES: PERRL, extraocular movements intact, sclera anicteric, conjunctiva clear. ENT: Ears normal, nares patent, oropharynx clear without exudates, moist mucous membranes. NECK: Trachea midline, full range of motion, supple. LUNGS: Breath sounds equal, clear to auscultation bilaterally, no wheezes, no crackles, no accessory muscle use. HEART: Regular rate and rhythm, S1, S2 without murmur, rub or gallop. ABDOMEN: Soft, nontender, nondistended, normoactive bowel sounds, no guarding, no rebound, no hepatosplenomegaly, no masses. EXTREMITIES: 2+ pulses, warm, well-perfused, no edema. left hip dsg dry and intact NEUROLOGICAL: Cranial nerves II through XII grossly intact. Normal speech, gait not observed. PSYCH: Normal mood, normal affect. SKIN: Warm, dry, normal turgor, no rashes or lesions noted. LABS Laboratory Results - last 24 hr 12/12/19 12/13/19 07:30 07:00 WBC 7.6 RBC 3.29 L Hgb 10.7 Hct 31.5 L MCV 95.8 MCH 32.7 MCHC 34.1 RDW 12.6 Plt Count 203 MPV 8.9 TSH 0.69 * Imaging Left hip X-ray : A single view of the left hip includes the right hip and most of the pelvis. There is a new left hip replacement with soft tissue air, soft tissue rigoberto and pelvic clips. There are arthritic right hip changes. The pelvic bones are intact. The SI joints are patent. There is urine filled bladder. HOSPITAL COURSE: Date of Admission:12/11/19 Date of Discharge: 12/13/19 This is a 69 year old F with h/o breast cancer, endometrial cancer, DJD hips and knees, hypothyroidism and gastritis with chronic left hip pain. Admitted for elective left hip replacement. Post surgery pt became hypotensive, medicine consulted for medical management. *Status post left hip replacement 12/11/19 - management per sx - s/p Ancef x 3 doses - pain control - PT eval done, WBAT - encourage to use IS - Bowel regimen - afebrile with no leukocytosis - out pt ortho f/u * Abnormal Neutrophils - wbc,absolute Neuts - wnl * Hypotension , poss due to anesthesia / pain meds - known hox of hypotension post sx - BP improved, asymptomatic - s/p IVF *Hypothyroidism - will cont Synthroid 50mcg * GERD- on PPI Minutes to complete discharge: 35 Discharge Summary Problems reviewed: Yes Reason For Visit: LEFT HIP OSTEOARTHRITIS Current Active Problems Hypothyroidism (Acute) Prophylactic measure (Acute) Status post left hip replacement (Acute) Condition: Good - Instructions Diet, Activity, Other Instructions: Regular diet - Pain control: minimize narcotic use - DVT prophylaxis (ASA 325 BID x 6 weeks) - Ice to left hip - Elevate HOB, encourage oral intake - Physical therapy - Weight bearing to left lower extremity as tolerated. Increase fluid intake Monitor Blood pressure Encourage to use Incentive spirometer Referrals: Oleg Oro DO [Staff Physician] - (as scheduled ) Ines Reyes [Non Staff, Medical] - Disposition: VNS/HOME HEALTH CARE - Home Medications Comprehensive Discharge Medication List: Ambulatory Orders Levothyroxine [Synthroid -] 50 mcg PO DAILY 12/07/19 Red Yeast Rice 600 mg PO HS 12/07/19 Acetaminophen [Tylenol .Regular Strength -] 975 mg PO Q6H tablet 12/13/19 Aspirin [ASA -] 325 mg PO BID tablet 12/13/19 Docusate Sodium [Colace -] 100 mg PO BID #60 capsule 12/13/19 Lidocaine 5% Patch [Lidoderm -] 1 patch TP DAILY #10 patch 12/13/19 Magnesium Hydrox 2400MG/30Ml [Milk of Magnesia -] 30 ml PO PRN PRN cup 12/13/19 Pantoprazole Sodium [Protonix -] 40 mg PO DAILY tablet.ec 12/13/19 Sennosides/Docusate Sodium [Pericolace -] 2 tablet PO BID #60 tablet 12/13/19 oxyCODONE HCL [Roxicodone -] 10 mg PO Q4H PRN tablet 12/13/19 This patient is new to me today: No Emergency Visit: Yes ED Registration Date: 12/11/19 Care time: The patient presented to the Emergency Department on the above date and was hospitalized for further evaluation of their emergent condition. Critical Care patient: No - Discharge Referral Referred to [facility] No
[2019-12-14] MEDS ORDERED: ACETAMINOPHEN 325 MG TABLET (FP) PO SCH ×2 (21:00)
--- NOTE | 2019-12-15 18:01 | PATH ---
Surgical Pathology Report Patient Name: VANCE SCHMIDT Med. Rec. #: [id number] /Age/Gender: 1950 (Age: 69) / F Account: [id number] Location: [facility] MED[facility] Taken: 12/11/2019 Received: 12/11/2019 Reported: 12/15/2019 Physicians: Jose Antonio Geronimo M.D. Specimen(s) Received LEFT FEMORAL HEAD Clinical History Left hip osteoarthritis Final Diagnosis BONE, FEMORAL HEAD, LEFT, TOTAL HIP REPLACEMENT: BONE WITH DEGENERATIVE JOINT DISEASE. Electronically Signed Nelly Matta M.D. Gross Description Received in formalin, labeled "left femoral head," is a 4.7 x 4.5 x 3.6 cm. femoral head with a 0.6 cm in length portion of femoral neck attached. The margin of resection is smooth. There is a 2.6 cm greatest dimension area of eburnation present. The remaining articular surface is bryant-brown and diffusely granular and nodular. The underlying trabecular bone is yellow and hard. A malt liquors sales representative section is submitted in one cassette, following decalcification. /12/14/2019 [facility]12/14/2019
== END 2019-12-13 13:06 | disposition home health service (06) | DRG 470 ==
LOC: FM/S 12-11 06:01
PROVIDERS: ADMIT Orthopaedic Surgery; ATTEND Nurse Practitioner Family
PROC: 8E0W0CZ Robotic Assisted Procedure of Trunk Region, Open Approach (ICD-10-PCS; 2019-12-11)
PROC: 0SRB0JA Replacement of Left Hip Joint with Synthetic Substitute, Uncemented, Open Approach (ICD-10-PCS; principal; 2019-12-11 08:42)
DX: M16.12 Unilateral primary osteoarthritis, left hip (principal); I95.81 Postprocedural hypotension; R33.8 Other retention of urine; M16.0 Bilateral primary osteoarthritis of hip; M17.0 Bilateral primary osteoarthritis of knee; E03.9 Hypothyroidism, unspecified; K21.9 Gastro-esophageal reflux disease without esophagitis; K44.9 Diaphragmatic hernia without obstruction or gangrene; K64.9 Unspecified hemorrhoids; M85.80 Other specified disorders of bone density and structure, unspecified site; Z85.42 Personal history of malignant neoplasm of other parts of uterus; Z85.3 Personal history of malignant neoplasm of breast
CPT/HCPCS: 36415; 73502-TC-LT-FY; 80048; 82533; 84443; 85025; 85027; 88305-TC; 88311-TC; 94760; 97116-GP; 97162-GP; J0131

== ENCOUNTER 2020-11-25 08:35 | Day surgery (SDC) | payer OTHER ==
[2020-11-16 11:39] VITALS: BMI 27.4
[2020-11-25] MEDS ORDERED: PROPOFOL 20 ML ONE ×2 (10:31→11:08)
[2020-11-25] MEDS ORDERED: MIDAZOLAM HCL 2 MG/2 ML SINGLE DOSE VIAL ONE (10:31)
[2020-11-25] MEDS ORDERED: BUPIVACAINE HCL/PF 2.5 MG/ML - 30 ML VIAL IJ ONE (10:31)
[2020-11-25] MEDS ORDERED: SUCCINYLCHOLINE CHLORIDE 200 MG/10 ML SYRINGE ONE (10:32)
[2020-11-25] MEDS ORDERED: oxyCODONE HCL 5 MG TABLET PO PRN (11:40)
[2020-11-25] MEDS ORDERED: ACETAMINOPHEN 1000 MG/100 ML VIAL (NON FORMULARY) IVPB ONE (11:40)
[2020-11-25] MEDS ORDERED: ONDANSETRON 4 MG/2 ML VIAL IVPUSH PRN (11:40)
[2020-11-25] MEDS ORDERED: LACTATED RINGERS SOLUTION 1,000 ML IV SCH (11:45)
[2020-11-25] MEDS ORDERED: ACETAMINOPHEN INJECTION 100 ML IVPB ONE (13:29)
[2020-11-25 14:03] VITALS: TEMP 98
[2020-11-25 14:06] VITALS: BP 110/65; PULSE 60
== END 2020-11-25 14:10 | disposition home or self-care (01) ==
LOC: FASU 08:35
PROVIDERS: ATTEND Orthopaedic Surgery
PROC: 0SBC4ZZ Excision of Right Knee Joint, Percutaneous Endoscopic Approach (ICD-10-PCS; 2020-11-25)
PROC: 0SBC4ZZ Excision of Right Knee Joint, Percutaneous Endoscopic Approach (ICD-10-PCS; principal; 2020-11-25 11:35)
DX: S83.241A Other tear of medial meniscus, current injury, right knee, initial encounter (principal); S83.281A Other tear of lateral meniscus, current injury, right knee, initial encounter; S83.8X1A Sprain of other specified parts of right knee, initial encounter; M65.861 Other synovitis and tenosynovitis, right lower leg; X58.XXXA Exposure to other specified factors, initial encounter; Y93.9 Activity, unspecified; Y92.9 Unspecified place or not applicable
CPT/HCPCS: 94760; J0131